=== PATIENT | male | born 1980 | race American Indian/Alaskan Native ===

== ENCOUNTER 2019-07-08 08:26 | Observation (INO) | payer MEDICARE ==
[~2019-07-08 08:26] MED LIST: BUPIVACAINE/PF (0.5%) 5 MG/1 ML 10 ML VIAL INFILTRATI ONE; HEPARIN 10,000 UNITS/10 ML VIAL IV ONE; HEPARIN 10,000 UNITS/10 ML VIAL ONE; NITROGLYCERIN SYRINGE 0 ML ONE; PAPAVERINE 60 MG/2 ML INJ SDV ONE; PROTAMINE SULFATE 50 MG/5 ML INJ ONE; SODIUM CHLORIDE 0.9% 500 ML IVPB IV ONE; rifAMPin 600 MG VIAL ONE
[2019-07-08] MEDS ORDERED: ceFAZolin/STERILE WATER 2 GM/20 ML SYRINGE IV NR (09:30)
[2019-07-08 09:33] LABS: Calcium 9.4 mg/dL (8.4-10.2)
[2019-07-08] MEDS ORDERED: fentaNYL 100 MCG/2 ML INJ ONE (09:39)
[2019-07-08] MEDS ORDERED: LIDOCAINE MPF (2%) 20 MG/1 ML VIAL 5 ML ONE (09:39)
[2019-07-08] MEDS ORDERED: MIDAZOLAM 2 MG/2 ML INJ ONE (09:39)
[2019-07-08] MEDS ORDERED: propofoL 200 MG/20 ML VIAL IV ONE (09:40)
[2019-07-08 09:49] LABS: Hematocrit 35.5 % (35.5-45.6); Hemoglobin 11.6 gm/dl (11.8-15.2); Mean Corpuscular HGB Conc 33 % (32-34); Mean Corpuscular Volume 92 fl (84-94); Platelet Count 166 K/mm3 (140-440); Red Blood Count 3.84 M/mm3 (3.65-5.03)
--- NOTE | 2019-07-08 10:26 | Anesthesia Consultation ---
Anesthesia Consult and Med Hx Date of service: 07/08/19 - Airway Anesthetic Teeth Evaluation: Good ROM Head & Neck: Adequate Mental/Hyoid Distance: Adequate Mallampati Class: Class II Intubation Access Assessment: Probably Good - Pre-Operative Health Status ASA Pre-Surgery Classification: ASA3 Proposed Anesthetic Plan: General - Cardiovascular System Hx Internal Defibrillator: Yes (EF 10-15%) Hx Heart Murmur: Yes Hx Peripheral Vascular Disease: Yes - Central Nervous System Hx Psychiatric Problems: No - Endocrine Hx Renal Disease: Yes Hx End Stage Renal Disease: Yes Hx Non-Insulin Dependent Diabetes: Yes - Hematic Hx Anemia: Yes - Other Systems Hx Cancer: No
--- NOTE | 2019-07-08 10:32 | Anesthesia Day of Surgery ---
Anesthesia Day of Surgery - Day of Surgery Patient Examined: Yes Patient H&P Reviewed: Yes Patient is NPO: Yes Beta Blockers: Yes Cardiac Clearance: No (RECENT ECHO FROM 05/2019)
[2019-07-08 10:34] LABS: Calcium 9.6 mg/dL (8.4-10.2)
[2019-07-08] MEDS ORDERED: HEPARIN 5,000 UNIT/1 ML VIAL ONE (11:28)
--- NOTE | 2019-07-08 12:59 | Event Note ---
Date: 07/08/19 Patient presented for dialysis access creation and was found to be hyperkalemic x 3. Dr. Myers was contacted and covering drum puller, Dr. Hackett was contacted as patient will require hemodialysis. I discussed this with the patient. Patient would prefer to be discharged after dialysis and to reschedule his dialysis access creation. However, if he ends up spending the night, please make patient n.p.o. after midnight as we may be able to create a dialysis access for him tomorrow.
[2019-07-08] MEDS ORDERED: SODIUM CHLORIDE 0.9% 100 ML IV PRN (13:54)
[2019-07-08 15:41] LABS: Hepatitis B Surface Antigen Nonreactive (Negative); Hepatitis C Virus Antibody Nonreactive (NonReactive)
--- NOTE | 2019-07-09 01:44 | Event Note ---
Date: 07/08/19 See history and physical. In the reports Hyperkalemia--treated AV fistula in a.m. End-stage renal disease needing dialysis
[2019-07-09] MEDS ORDERED: oxyCODONE /ACETAMINOPHEN 5-325MG TAB PO PRN (01:50)
[2019-07-09] MEDS ORDERED: CALCIUM GLUCONATE 2,000 MG in SODIUM CHLORIDE 0.9% 100 ML IV ONE (01:50)
[2019-07-09] MEDS ORDERED: ACETAMINOPHEN 325 MG TAB PO PRN (01:50)
[2019-07-09] MEDS ORDERED: HYDROmorphone 1 MG/1 ML INJ IV PRN (01:50)
[2019-07-09] MEDS ORDERED: ONDANSETRON 4 MG/2 ML INJ IV PRN (01:50)
[2019-07-09] MEDS ORDERED: SODIUM POLYSTYRENE 15 GM/60 ML ORAL LIQD PO ONE (02:00)
--- NOTE | 2019-07-09 02:10 | History and Physical Report ---
CHIEF COMPLAINT: High potassium. HISTORY OF PRESENT ILLNESS: The patient was in the preop area for dialysis access creation. Preop labs showed the patient having high potassium level, because of which the patient is being admitted for treatment of hyperkalemia and emergent hemodialysis. The patient rescheduled for surgery tomorrow. The patient given Kayexalate and calcium gluconate after admission. PAST MEDICAL HISTORY: Significant for end-stage renal disease and hypertension. PAST SURGICAL HISTORY: Vas-Cath insertion. FAMILY HISTORY: Hypertension. SOCIAL HISTORY: Does not smoke. No alcohol, no recreational drugs. REVIEW OF SYSTEMS: Significant for no symptoms. The patient is here for AV fistula surgery. PHYSICAL EXAMINATION: GENERAL: Young male, cooperative during examination. VITAL SIGNS: Blood pressure is 137/83, temperature is 97.8, pulse is 87, sats are 98%. HEENT: Unremarkable. Pupils equal and reactive. NECK: Supple, no lymphadenopathy, no thyromegaly. LUNGS: Clear to auscultation and percussion. Good air entry. CARDIOVASCULAR: S1, S2 heard. No gallop, no murmur, no rub. Apical impulse in left fifth intercostal space in midclavicular line. ABDOMEN: Soft and benign. No hepatosplenomegaly. No guarding, no rigidity. EXTREMITIES: Good pedal pulses. No pedal edema. CENTRAL NERVOUS SYSTEM: Alert and oriented x 4, nonfocal exam. LABORATORY DATA: White count is 4500, H and H is 11.6 and 35.5, platelet count is 166. Sodium is 134, potassium 6.9, BUN and creatinine is 37 and 5.8. Hepatitis profile is nonreactive. ASSESSMENT AND PLAN: 1. Hyperkalemia. Hyperkalemia was treated with Kayexalate, calcium gluconate and also, the patient had hemodialysis. Potassium to be checked. 2. Arteriovenous fistula creation. The patient to go for surgery tomorrow, if not be discharged. The patient in observation status. N.p.o. from midnight. 3. Hypertension. Continue Coreg. 4. End-stage renal disease. Continue hemodialysis. Nephrology consult requested. 5. Deep venous thrombosis prophylaxis, heparin 5000 q. 12. JOB# [id number] VSM/NTS
[2019-07-09 06:49] LABS: Calcium 9.9 mg/dL (8.4-10.2)
--- NOTE | 2019-07-09 08:37 | Progress Note ---
Hospitalist Physical - Constitutional Vitals: Temp Pulse Resp BP Pulse Ox 97.4 F L 81 16 137/87 92 07/09/19 04:35 07/09/19 04:35 07/09/19 04:35 07/09/19 04:35 07/09/19 04:35 Results - Labs CBC & Chem 7: 07/08/19 09:05 07/09/19 05:54 Labs: Laboratory Last Values WBC 4.5 K/mm3 (4.5-11.0) 07/08/19 09:05 RBC 3.84 M/mm3 (3.65-5.03) 07/08/19 09:05 Hgb 11.6 gm/dl (11.8-15.2) L 07/08/19 09:05 Hct 35.5 % (35.5-45.6) 07/08/19 09:05 MCV 92 fl (84-94) 07/08/19 09:05 MCH 30 pg (28-32) 07/08/19 09:05 MCHC 33 % (32-34) 07/08/19 09:05 RDW 15.0 % (13.2-15.2) 07/08/19 09:05 Plt Count 166 K/mm3 (140-440) 07/08/19 09:05 Sodium 137 mmol/L (137-145) 07/09/19 05:54 Potassium 4.8 mmol/L (3.6-5.0) D 07/09/19 05:54 Chloride 94.4 mmol/L (98-107) L 07/09/19 05:54 Carbon Dioxide 26 mmol/L (22-30) 07/09/19 05:54 Anion Gap 21 mmol/L 07/09/19 05:54 BUN 21 mg/dL (9-20) H 07/09/19 05:54 Creatinine 4.3 mg/dL (0.8-1.5) H 07/09/19 05:54 Estimated GFR 19 ml/min 07/09/19 05:54 BUN/Creatinine Ratio 5 % 07/09/19 05:54 Glucose 229 mg/dL (75-100) H 07/09/19 05:54 POC Glucose 203 (70-105) H 07/08/19 09:17 Calcium 9.9 mg/dL (8.4-10.2) 07/09/19 05:54 Hepatitis A IgM Ab Nonreactive (NonReactive) 07/08/19 14:05 Hep Bs Antigen Nonreactive (Negative) 07/08/19 14:05 Hep B Core IgM Ab Non-reactive (NonReactive) 07/08/19 14:05 Hepatitis C Antibody Nonreactive (NonReactive) 07/08/19 14:05 Grigsby/IV: Voiding Method Toilet IV Catheter Type [Right Hand] INT / Saline Lock IV Catheter Type [Right Chest] INT / Saline Lock Active Medications - Current Medications Current Medications: Generic Name Dose Route Start Last Admin Trade Name Freq PRN Reason Stop Dose Admin Acetaminophen 650 mg 07/09/19 01:50 Tylenol PO Q4H PRN Pain MILD(1-3)/Fever >100.5/GUSTAFSON Carvedilol 12.5 mg 07/09/19 10:00 Coreg PO BID ROBIN Famotidine 10 mg 07/09/19 10:00 Pepcid PO BID [facility] Hydromorphone HCl 0.5 mg 07/09/19 01:50 Dilaudid IV Q3H PRN Pain , Severe (7-10) Sodium Chloride 100 mls @ 999 mls/hr 07/08/19 13:54 Nacl 0.9% IV THOR PRN Hypotension Ondansetron HCl 4 mg 07/09/19 01:50 Zofran IV Q8H PRN Nausea And Vomiting Oxycodone/Acetaminophen 1 tab 07/09/19 01:50 Percocet 5/325 PO Q6H PRN Pain, Moderate (4-6) Sodium Chloride 10 ml 07/09/19 10:00 Sodium Chloride Flush Syringe 10 Ml IV BID ROBIN Sodium Chloride 10 ml 07/09/19 01:50 Sodium Chloride Flush Syringe 10 Ml IV PRN PRN LINE FLUSH
[2019-07-09] MEDS ORDERED: FAMOTIDINE 10 MG TAB PO SCH (10:00)
[2019-07-09] MEDS ORDERED: carvediloL 12.5 MG TAB PO SCH (10:00)
[2019-07-09] MEDS ORDERED: SODIUM CHLORIDE 0.9% 500 ML 500 ML ONE (10:23)
[2019-07-09] MEDS ORDERED: BUPIVACAINE/PF (0.5%) 5 MG/1 ML 30 ML VIAL INFILTRATI ONE ×2 (10:24→13:08)
[2019-07-09] MEDS ORDERED: SODIUM CHLORIDE P/F VIAL 10 ML 0 ML ONE (10:24)
[2019-07-09] MEDS ORDERED: HEPARIN 10,000 UNITS/10 ML VIAL ONE (10:24)
[2019-07-09] MEDS ORDERED: rifAMPin 600 MG VIAL ONE (10:24)
[2019-07-09] MEDS ORDERED: SODIUM CHLORIDE 0.9% 250ML 250 ML ONE (10:25)
[2019-07-09] MEDS ORDERED: fentaNYL 100 MCG/2 ML INJ IV PRN (10:55)
[2019-07-09] MEDS ORDERED: fentaNYL 100 MCG/2 ML INJ IV ONE (10:55)
[2019-07-09] MEDS ORDERED: MIDAZOLAM 2 MG/2 ML INJ IV NR (11:00)
[2019-07-09] MEDS ORDERED: SODIUM CHLORIDE 0.9% 1000 ML 1,000 ML IV SCH (11:00)
--- NOTE | 2019-07-09 11:10 | Anesthesia Day of Surgery ---
Anesthesia Day of Surgery - Day of Surgery Patient Examined: Yes Patient H&P Reviewed: Yes Patient is NPO: Yes
[2019-07-09] MEDS ORDERED: BUPIVACAINE-EPINEPHRINE/PF 0.5%-1:200,000 (30 ML) VIAL INFILTRATI ONE (11:18)
[2019-07-09] MEDS ORDERED: ceFAZolin/STERILE WATER 2 GM/20 ML SYRINGE IV NR (11:55)
[2019-07-09] MEDS ORDERED: MIDAZOLAM 2 MG/2 ML INJ ONE (12:38)
[2019-07-09] MEDS ORDERED: fentaNYL 100 MCG/2 ML INJ ONE (12:39)
[2019-07-09] MEDS ORDERED: LIDOCAINE (1%) 10 MG/1 ML VIAL 20 ML MDV ONE (12:54)
[2019-07-09] MEDS ORDERED: HEPARIN 10,000 UNITS/10 ML VIAL IR ONE (13:08)
[2019-07-09] MEDS ORDERED: SODIUM CHLORIDE 0.9% 500 ML IVPB IRRIGATION ONE (13:09)
[2019-07-09] MEDS ORDERED: SODIUM CHLORIDE 0.9% IRR 1,500 ML BOTTLE IR ONE (13:09)
[2019-07-09] MEDS ORDERED: HYDROcodone/ACETAMINOPHEN 7.5-325MG TAB PO PRN (15:17)
--- NOTE | 2019-07-09 15:17 | Operative Report ---
Operative Report Operative Report: Date of procedure: 07/09/2019 Pre-operative diagnosis: End-Stage Renal Disease Post-operative diagnosis: End-Stage Renal Disease Procedure(s): 1. Creation of Left Brachial Artery to Cephalic Vein Arteriovenous Fistula 2. Angioplasty of Left Cephalic Vein with 4 x 200 Angiosculpt Balloon Surgeon: Diego Jorge MD Construction Crew Member: None Anesthesia: Regional Block/MAC EBL: Minimal Counts: Correct Complications: None Condition: Stable Findings: Pulsatility in the fistula after initial creation however there was a palpable thrill at the completion of the case. Specimen: None Indications: The patient is a 38-year-old male with a history of end-stage renal disease who is on hemodialysis through a right internal jugular permacath. He had a previous right arm AV graft that has failed and is in need of long-term dialysis access. He was given the risk, benefits, and alternative procedures and consented to the procedure. Description of Procedure: The patient was brought to the operating room and laid in supine position after general endotracheal anesthesia was administered the patient was prepped and draped in normal sterile fashion. After anesthetizing the skin a transverse incision was created just below the antecubital crease. Dissection was carried down to the the cephalic vein using sharp dissection. The vein was dissected out both proximally and distally and suture ligated and divided distally. I then ran a 3 Niko proximally in the vein, to ensure patency of the vein. Then flushed the vein with heparinized saline and flow was controlled with a bulldog clamp. I then dissected out the brachial artery through this incision circumferentially both proximal and distal and controlled the artery with vessel loops. I then placed the vessel loops on tension controlling the flow through the artery and created an arteriotomy using an 11 blade and Harden scissors. I created an end to side anastomosis between the cephalic vein and brachial artery using a 6-0 Prolene in running fashion. Prior to completing the anastomosis I flushed the artery both proximally and distally and then advanced a 3 Niko proximally to break the spasm in the artery. I then completed the anastomosis and removed all vessel loops allowing flow into the fistula. The fistula had a pulse near the arterial anastomosis and I was unable to feel a pulse or thrill in the upper arm despite the patient having a thin arm. I interrogated the perianastomotic portion of the fistula and there was an area with obvious stenosis with a diminished pulse distal to the area. I contemplated performing patch angioplasty however I felt that given his history of multiple IV sticks and blood draws in his arm it was possible that there were multiple areas of stenosis along the vein so I decided that an attempt of angioplasty of the vein was a better choice. I did not want to place a graft in his arm given his defibrillator and the risk of edema was greater with the graft and with a fistula. I reclamped the brachial artery and then made a small venotomy over the arterial anastomosis using an 11 blade. I advanced a 0.014 Choice PT Wire through the venotomy and then advanced a 4 x 200 Angiosculpt balloon over the wire, through the venotomy without a sheath, until the balloon was just inside the venotomy. I performed an angioplasty at nominal pressure for approximately 3 minutes. I then removed the balloon and wire and closed the venotomy using a 6-0 Prolene in U stitch fashion. I then released the clamp on the brachial artery allowing flow into the fistula which now had a palpable thrill in the mid arm and a bruit that could be auscultated with a Doppler throughout the course of the cephalic vein. At this point I achieved hemostasis with a combination of direct pressure, electrocautery, Quick Clot. Once hemostasis was achieved I closed the wound in 2 layers and 3-0 Vicryl in a running fashion to close the deep dermal layer and 4-0 Monocryl in a running fashion in the subcuticular layer. I dressed the wound with Dermabond. The patient tolerated the procedure well, all sponge needle and instrument counts were correct. The patient was taken to recovery in stable condition.
--- NOTE | 2019-07-09 16:19 | Discharge Summary ---
Providers - Providers Date of Admission: 07/08/19 13:14 Date of discharge: 07/09/19 Attending physician: LUIS MIGUEL BENTON 07/08/19 13:19 Consult to Physician [CONS] Routine Comment: Consulting Provider: RAMIRO CAO Physician Instructions: Reason For Exam: VASCATH PLACEMENT 07/08/19 13:21 Consult to Physician [CONS] Urgent Comment: Consulting Provider: AMANDA PLEITEZ Physician Instructions: Reason For Exam: ESRD, DIALYSIS 07/09/19 Consult to Case Management [CONS] Routine Services Needed at Discharge: Other Notified:: cm Comment:: Discharge planning-patient in observation status Primary care physician: SEISMIC OBSERVER Hospitalization Reason for admission: Hyperkalemia/ESRD on hemodialysis/AV fistula creation Procedures: Creation of Left Brachial Artery to Cephalic Vein Arteriovenous Fistula Angioplasty of Left Cephalic Vein with 4 x 200 Angiosculpt Balloon Hospital course: Patient was seen by vascular for dialysis access creation; Patient required hemodialysis, nephrology evaluated the patient, Patient had HD, later IR/vascular evaluated the patient Had vascular procedure creation of dialysis access. Patient tolerated the procedure well Today patient is comfortable no new complaints vital signs stable Physical examination prior to discharge is unremarkable Advised to follow with nephrology and HD per schedule Stable at discharge Discharge diagnosis; --Hyperkalemia; corrected Closely monitor potassium levels --End-stage renal disease; on hemodialysis Nephrology evaluated the patient, HD per schedule --Dialysis catheter access creation; vascular evaluated Vascular procedure done, patient stable --Hypertension; moderate control Advised to continue antihypertensives --DVT prophylaxis; SCDs Cleared by nephrology, vascular Stable at discharge Disposition: CO-01 TO HOME OR SELFCARE Time spent for discharge: 32 min Core Measure Documentation - Palliative Care Palliative Care/ Comfort Measures: Not Applicable - Core Measures Any of the following diagnoses?: none Exam - Constitutional Vitals: Temp Pulse Resp BP Pulse Ox 97.2 F L 80 16 143/96 100 07/09/19 10:55 07/09/19 12:05 07/09/19 12:22 07/09/19 12:05 07/09/19 12:05 General appearance: Present: no acute distress, well-nourished - EENT Eyes: Present: PERRL, EOM intact - Neck Neck: Present: supple, normal ROM - Respiratory Respiratory effort: normal Respiratory: bilateral: diminished, negative: rales, rhonchi, wheezing - Cardiovascular Rhythm: regular Heart Sounds: Present: S1 & S2 - Extremities Extremities: no ischemia, No edema - Abdominal General gastrointestinal: Present: soft, non-tender, non-distended, normal bowel sounds - Integumentary Integumentary: Present: clear, warm - Musculoskeletal Musculoskeletal: strength equal bilaterally - Psychiatric Psychiatric: appropriate mood/affect, cooperative - Neurologic Neurologic: CNII-XII intact, moves all extremities Plan Activity: advance as tolerated Diet: renal Additional Instructions: Follow nephrology, hemodialysis per schedule Follow up with: PRIMARY CARE,MD [Primary Care Provider] - 7 Days SOPHIE ARAGON DO [Staff Physician] - 7 Days Prescriptions: HYDROcodone/APAP 7.5-325 [[place] 7.5/325] 1 each PO Q6HR PRN #40 tablet PRN Reason: Pain
[2019-07-09 16:44] VITALS: BP 121/82
--- NOTE | 2019-07-10 08:16 | Post Anesthesia Evaluation ---
- Post Anesthesia Evaluation Patient Participated: Yes Airway Patent: Yes Stable Respiratory Function: Yes Nausea/Vomiting: No Temp > 96.8F: Yes Pain Manageable: Yes Adequeate Hydration: Yes Anesthesia Complications: No Block Receding Appropriately: Yes Patient on Ventilator: No
== END 2019-07-09 17:30 | disposition home or self-care (01) ==
LOC: OR 08:26 → 3A 13:14
PROVIDERS: ADMIT Internal Medicine; ATTEND Internal Medicine
DX: E87.5 Hyperkalemia (principal); I12.0 Hypertensive chronic kidney disease with stage 5 chronic kidney disease or end stage renal disease; N18.6 End stage renal disease; Z49.01 Encounter for fitting and adjustment of extracorporeal dialysis catheter; Z79.899 Other long term (current) drug therapy
CPT/HCPCS: 36415; 36830; 36907; 80048; 80074; 82962; 84132; 85027; 96374; C1725; C1757; C1769; G0257; G0378; J0610; J1644; J2250; J3010; J7030; J7040; J7050; J1642; J2440; J2704; J2720; J3490

== ENCOUNTER 2020-10-01 10:29 | Day surgery (SDC) | payer MEDICARE, OTHER ==
--- NOTE | 2020-10-01 10:46 | Short Stay Summary ---
Short Stay Documentation Date of service: 10/01/20 Narrative H&P: The patient is a 39-year-old male with a history of end-stage renal disease who is on hemodialysis through a left brachiocephalic arteriovenous fistula. He has a left side defibrillator and a known central venous occlusion. He presented with severe left upper extremity swelling and had an attempted recannulization of his left subclavian vein that was unsuccessful. He is in need of intervention to decompress his left upper extremity to relieve his swelling. He has no additional complaints at this time. I will plan to perform a percutaneous costoclavicular bypass using Viabahn stent grafts to relieve his central venous occlusion. The patient has been given the risk, benefits, and alternative procedures and has consented to the procedure. - History Past Medical History: dialysis, ESRD, heart failure Past Surgical History: Other (Defibrillator, multiple arteriovenous access creation's, permacath insertions) Social history: no significant social history - Allergies and Medications Current Medications: Allergies No Known Allergies Allergy (Unverified 07/07/19 11:50) Home Medications Medication Instructions Recorded Confirmed Last Taken Type Aspirin [Adult Aspirin] 81 mg PO DAILY 07/07/19 07/08/19 07/07/19 08:00 History Sucroferric Oxyhydroxide(Nf) 2 tab PO TID 07/07/19 07/08/19 07/07/19 20:00 History [Velphoro (Nf)] carvediloL [Coreg] 12.5 mg PO BID 07/07/19 07/08/19 07/08/19 07:00 History HYDROcodone/APAP 7.5-325 [[place] 1 each PO Q6HR PRN #40 tablet 07/09/19 Unknown Rx 7.5/325] - Physical exam General appearance: no acute distress Lungs: Normal air movement Breasts: deferred Heart: Regular rate Gastrointestinal: normal Male Genitourinary: deferred Rectal Exam: deferred Extremities: abnormal (Palpable thrill in left arm AV fistula, swelling of left upper extremity) - Brief post op/procedure progress note Date of procedure: 10/01/20 Pre-op diagnosis: Complications of Dialysis Access Post-op diagnosis: same Procedure: 1. Ultrasound-Guided Access Left Arm AV Fistula with 7 [place] Sheath Venous 2. Ultrasound-Guided Access Left Arm AV Fistula with 6 [place] Sheath Arterial 3. Ultrasound-Guided Access Left Internal Jugular Vein with 5 [place] Micropuncture Sheath 4. Diagnostic Fistulagram with Central Venogram 5. Angioplasty and Stent of Left Innominate Vein and Left Internal Jugular Vein with 10 mm x 15 cm Viabahn Stent Grafts (x2) and 10 x 40 [place] Balloon 6. Angioplasty and Stent of Left Brachiocephalic Arteriovenous Fistula With 10 mm x 15 cm Viabahn Stent Graft And 10 x 40 [place] Balloon In the Venous Outflow And Then 8 x 100 [place] Balloon in the Arterial Inflow 7. Radiologic Supervision with Interpretation 9. Monitored Moderate Sedation (Total Anesthesia Time: 136 Minutes) Anesthesia: local, other (Monitored moderate sedation) Surgeon: TERRY JIMENES Estimated blood loss: other (250 mL) Pathology: none Condition: stable - Disposition Condition at discharge: Good Disposition: DC-01 TO HOME OR SELFCARE Short Stay Discharge Plan Activity: other (No heavy lifting with left arm for 2 weeks.) Wound: remove dressing (48 hours), other (After removing the dressing in 48 hours okay to shower and wash the wounds with soap and water but do not soak in water for 2 weeks.) Follow up with: TERRY JIMENES MD [Staff Physician] - 14 Days Prescriptions: Clindamycin [Clindamycin CAP] 300 mg PO Q6H 5 Days #20 capsule Oxycodone HCl/Acetaminophen [Percocet 7.5/325 mg] 1 each PO Q6HR PRN #30 tablet PRN Reason: Pain
[2020-10-01 11:57] LABS: Hematocrit 35.5 % (35.5-45.6); Mean Corpuscular HGB Conc 34 % (32-34); Mean Corpuscular Volume 96 fl (84-94); Red Blood Count 3.71 M/mm3 (3.65-5.03); Red Cell Distribution Width 15.1 % (13.2-15.2)
[2020-10-01 12:00] LABS: Platelet Count 91 K/mm3 (140-440)
[2020-10-01] MEDS ORDERED: SODIUM CHLORIDE 0.9% 500 ML 500 ML IV SCH (12:00)
[2020-10-01 12:08] LABS: INR 1.01 (0.87-1.13)
[2020-10-01 12:09] LABS: Partial Thromboplastin Time 30.9 Sec. (24.2-36.6)
[2020-10-01 12:10] LABS: Blood Urea Nitrogen 16 mg/dL (9-20); Calcium 8.8 mg/dL (8.4-10.2); Hemolysis Index 356
[2020-10-01 12:17] LABS: BUN/Creatinine Ratio 4
[2020-10-01] MEDS ORDERED: HEPARIN/NS 5000 UNIT/500ML 1,000 ML IR ONE ×2 (12:59→15:00)
[2020-10-01] MEDS ORDERED: SODIUM CHLORIDE 0.9% 500 ML 500 ML ONE ×2 (12:59→15:33)
[2020-10-01] MEDS ORDERED: HEPARIN 10,000 UNITS/10 ML VIAL ONE ×2 (12:59→15:33)
[2020-10-01] MEDS: MIDAZOLAM 2 MG/2 ML INJ ONE ×4 (13:33→14:52)
[2020-10-01] MEDS: fentaNYL 100 MCG/2 ML INJ ONE ×5 (13:33→14:57)
[2020-10-01] MEDS: LIDOCAINE (2%) 20 MG/1 ML VIAL 20 ML MDV INFILTRATI ONE ×2 (13:34→13:43)
[2020-10-01] MEDS ORDERED: ceFAZolin/Water 2 GM/20 ML 2 GM/20 ML SYRINGE IV ONE (14:14)
[2020-10-01] MEDS ORDERED: LIDOCAINE (2%) 20 MG/1 ML VIAL 20 ML MDV INFILTRATI ONE ×2 (14:16→15:44)
[2020-10-01] MEDS ORDERED: MIDAZOLAM 2 MG/2 ML INJ ONE (14:55)
[2020-10-01] MEDS ORDERED: fentaNYL 100 MCG/2 ML INJ ONE (14:55)
--- NOTE | 2020-10-01 17:15 | Operative Report ---
Operative Report Operative Report: Date of Procedure: 10/01/2020 Pre-operative Diagnosis: Complications of Dialysis Access Post-operative Diagnosis: Same Procedure(s): 1. Ultrasound-Guided Access Left Arm AV Fistula with 7 [place] Sheath Venous 2. Ultrasound-Guided Access Left Arm AV Fistula with 6 [place] Sheath Arterial 3. Ultrasound-Guided Access Left Internal Jugular Vein with 5 [place]ian Micropuncture Sheath 4. Diagnostic Fistulagram with Central Venogram 5. Angioplasty and Stent of Left Innominate Vein and Left Internal Jugular Vein with 10 mm x 15 cm Viabahn Stent Grafts (x2) and 10 x 40 Conquest Balloon (Creating a Percutaneous Costocavicular Bypass) 6. Angioplasty and Stent of Left Brachiocephalic Arteriovenous Fistula With 10 mm x 15 cm Viabahn Stent Graft And 10 x 40 Conquest Balloon In the Venous Outflow And Then 8 x 100 [place] Balloon in the Arterial Inflow 7. Radiologic Supervision with Interpretation 9. Monitored Moderate Sedation (Total Anesthesia Time: 136 Minutes) Surgeon: Diego Jorge M.D. Locker Attendant: None Anesthesia: Monitored Moderate Sedation Total Anesthesia Time: 136 Minutes EBL: 250 mL Counts: Correct Complications: None Condition: Stable Specimen: None Indication: The patient is a 39-year-old male with a history of end-stage renal disease who is on hemodialysis through a left brachiocephalic arteriovenous fistula. He has a left side defibrillator which has caused a left central venous occlusion. I have been unable to cross the which has been causing him significant left arm swelling. He is in need of a fistulogram with intervention. He will require a percutaneous costoclavicular bypass to relieve his swelling. He has been given the risk, benefits, and alternative procedures and has consented to the procedure. Angiographic Findings: The diagnostic fistulogram revealed approximately 85% stenosis in the arterial inflow of the fistula. There was approximately 85% stenosis in the venous outflow of the fistula. The cannulation zone of the fistula was patent without evidence of flow-limiting stenosis. The innominate vein had approximately 60% stenosis. The superior vena cava was patent without evidence of flow-limiting stenosis. After intervention there was approximately 20% residual stenosis within the arterial inflow of the fistula however this was not flow-limiting. There was less than 10% residual stenosis within the venous outflow of the fistula. There was less than 15% residual stenosis within the innominate vein. Description of Procedure: The patient was brought to the angio suite and laid in supine position. After a timeout was performed the patient was sedated and his left arm, left neck, and left chest were prepped and draped in normal sterile fashion. Ultrasound was used to identify the fistula near the arterial inflow and lidocaine was used to anesthetize the skin and soft tissue overlying the fistula. A 21-gauge micropu ncture needle was used with ultrasound guidance into the fistula towards the venous outflow and a 0.018 micropuncture wire was advanced into the fistula. After removing the needle a 7 [place]ian 4 cm sheath was placed by Seldinger technique. Ultrasound was then used to identify the fistula near the venous outflow and anesthetize the skin and soft tissue overlying the fistula. A 21- gauge micropuncture needle was used access the fistula towards the arterial inflow and a 0.018 micropuncture wire was advanced to the fistula. After removing the needle a 6 [place]ian 4 cm sheath was advanced into the fistula by Seldinger technique. I then initially tried to use the external jugular vein as a conduit for the costo clavicular bypass however I had difficulty advancing the wire into the central venous system so I chose the internal jugular vein. I used ultrasound to identify the left internal jugular vein and use lidocaine to anesthetize the skin and soft tissue overlying the vein. I then used a 21-gauge micropuncture needle to access the vein and advanced a 0.018 micropuncture wire to the vein. I removed the needle and advanced the 5 [place]amanian micropuncture sheath into the vein. I remove the wire and inner dilator and then advanced a 0.035 Bentson wire into the central venous system. Initially the wire went into the right subclavian vein so I removed the acupuncture sheath and used a rob tebral catheter and a 0.035 stiff Glidewire and was able to manipulate the wire and catheter into the inferior vena cava under fluoroscopy. I then placed a 5 Panamanian sheath after removing the vertebral catheter. At this point I systemically heparinized the patient with 5000 units of heparin IV. I opened a 23 cm glidepath permacath and then used the peel-away sheath and remove the 5 [place]amanian sheath from the internal jugular vein and placed a peel-away sheath into the internal jugular vein. I then used a vertebral catheter with a Bentson wire, through my 7 Panamanian sheath within the fistula and cannulated the 6 Panamanian sheath within the venous outflow of the fistula. Once the catheter and wire were within the sheath I pulled the sheath out advancing the catheter and wire and then reinserted the dilator and sheath over the wire after removing the vertebral catheter. I removed the dilator and then advanced the catheter over the Bentson wire and out through the 6 Panamanian sheath. I then remove the Bentson wire so that the vertebral catheter was through and through both sheaths. I then used lidocaine and anesthetize my presumed tract extending from my 6 Panamanian sheath on the fistula, along the deltoid groove, up over the clavicle and then towards the entry site at the internal jugular vein. I used an 11 blade to make a small incision at the entry site of the 6 Panamanian sheath. I then connected the permacath to the tunneler and tunneled towards the clavicle, along the deltopectoral groove. I made a small stab incision as a counterincision to pull the tunneler out with a permacath. I then tunneled from the small counterincision to the entry site on the neck and pulled the permacath out of the tunnel. I removed the tunneler and then remove the dilator from the peel- away sheath. I then advanced the end of the stiff Glidewire, that had been inserted through the peel-away sheath and into the central venous system, through the permacath and out towards the exit site near the 6 Panamanian sheath. Once the end of the Glidewire was through the permacath I pulled the permacath and wire through that tunnel. I removed the 6 [place]amanian sheath and then advanced the end of the Glidewire through the vertebral catheter so was now through the fistula as well. I then remove the vertebral catheter and used a 125 cm vertebral catheter to exchange my Glidewire for a 0.035 advantage wire. I then remove the 7 Panamanian sheath and exchanged it for a 10 [place]ian 45 cm [place] Dry Seal Sheath. I advanced this through the fistula and through the tract and up to the peel-away sheath. I then began to peel the sheath away and advanced the 10 Panamanian sheath into the central venous system. Once the sheath had been peeled away I advanced a 10 [place]amanian sheath into the innominate vein and then advanced a 10 mm x 15 cm Viabahn Stent Graft into the proximal innominate vein and deployed it. I followed this with a second 10 mm x 15 cm Viabahn Stent Graft with approximately 5 cm of overlap that extended through the internal jugular vein and over the clavicle creating the percutaneous costoclavicular bypass. I then follow-up with a third 10 mm x 15 cm Viabahn Stent Graft with approximately 7 to 8 cm of overlap that extended into the venous outflow of the fistula. I postdilated all stent graft with a 10 x 40 Conquest Balloon resulting in less than 15% residual stenosis within the innominate vein and less than 10% residual stenosis throughout the remainder of the stent graft. I then pulled the sheath back into the arterial inflow of the fistula and used an 8 x 100 [place] Balloon and performed angioplasty of stenosis within the arterial inflow with a result of approximately 20% residual stenosis over a short segment however the remainder of the fistula had less than 10% residual stenosis. At this point I removed all balloons and wires and then used 3-0 Vicryl in pursestring fashion to close the entry site after removing the sheath. I then closed my neck incision and counterincision in 2 layers using 3-0 Vicryl in interrupted fashion to close the deep dermal layer and 4-0 Monocryl in interrupted fashion to close the subcuticular layer and then dressed with Dermabond. I closed the incision near the venous outflow of the fistula in 2 layers using 3-0 Vicryl in interrupted fashion to close the deep dermal layer and 2-0 Ethilon in interrupted vertical mattress fashion to reapproximate the skin. This was then dressed with a 4 x 4 gauze and Tegaderm. The patient tolerated the procedure well. All sponge, needle, and instrument counts were correct. The patient was transported to the recovery area in stable condition.
[2020-10-01] MEDS ORDERED: HYDROcodone/ACETAMINOPHEN 5-325 MG TAB PO PRN (17:25)
[2020-10-01 18:13] VITALS: BP 97/70
== END 2020-10-01 18:10 | disposition home or self-care (01) ==
LOC: CATHLABREC 10:29 → CATH 10:29 → CATHLABREC 18:10
PROVIDERS: ATTEND Surgery Vascular Surgery
DX: T82.898A Other specified complication of vascular prosthetic devices, implants and grafts, initial encounter (principal); I13.2 Hypertensive heart and chronic kidney disease with heart failure and with stage 5 chronic kidney disease, or end stage renal disease; I50.9 Heart failure, unspecified; E11.22 Type 2 diabetes mellitus with diabetic chronic kidney disease; N18.6 End stage renal disease; I42.9 Cardiomyopathy, unspecified; D64.9 Anemia, unspecified; Z79.899 Other long term (current) drug therapy; Z79.82 Long term (current) use of aspirin; Z98.890 Other specified postprocedural states; Y92.89 Other specified places as the place of occurrence of the external cause; Y82.8 Other medical devices associated with adverse incidents
CPT/HCPCS: 36415; 36903; 36908; 77001; 80048; 84132; 85027; 85610; 85730; 99156; 99157; C1725; C1750; C1769; C1874; C1894; J0690; J1644; J2250; J3010; J7040; 36558; 36906; Q9967